=== PATIENT | female | born 1935 | race Asian ===

== ENCOUNTER 2017-06-29 11:33 | Emergency (ER) | payer MEDICARE, OTHER ==
[2017-06-29 11:48] VITALS: BP 182/79
--- NOTE | 2017-06-29 12:19 | UC ---
Alvarez Chauhan Benjamin, scribed for Sadi Salcedo MD on 06/29/17 at 1205 . Complaint Female HPI - HPI Summary HPI Summary: 82yo female states that there are bubbles in urine. When questioned clearly she states she notices when she urinates in the toilet the bubbles are on top of the toilet water after urinating. Pt also reports increased urinary frequency. Denies any burning sensation or pain anywhere. No fever. Pt states feeling weak and tired lately. Prior hx of UTI, PMHx includes macular degeneration. FHX of CVA. - History Of Current Complaint Chief Complaint: UCGU Stated Complaint: URINARY ISSUE Time Seen by Provider: 06/29/17 11:53 Hx Obtained From: Patient Onset/Duration: Gradual Onset, Lasting Days, Still Present Timing: Intermittent Severity Currently: None Pain Intensity: 0 Pain Scale Used: 0-10 Numeric Character: Not Applicable Aggravating Factor(s): Nothing Alleviating Factor(s): Nothing Associated Signs And Symptoms: Positive: Negative - Allergies/Home Medications Allergies/Adverse Reactions: Allergies Allergy/AdvReac Type Severity Reaction Status Date / Time Ginkgo Biloba Allergy dermatitis Verified 05/25/17 13:27 Sulfa Antibiotics Allergy Rash Verified 06/29/17 11:37 PMH/Surg Hx/FS Hx/Imm Hx - Additional Past Medical History Additional PMH: Macular degeneration. - Surgical History Surgical History: Yes Surgery Procedure, Year, and Place: hysterectomy - Family History Known Family History: Positive: Other - CVA Family History: CVA - Social History Occupation: Retired Lives: Alone Alcohol Use: None Substance Use Type: None Smoking Status (MU): Never Smoked Tobacco Review of Systems Constitutional: Negative Skin: Negative Eyes: Negative ENT: Negative Respiratory: Negative Cardiovascular: Negative Gastrointestinal: Negative Genitourinary: Frequency - incereased, Other - "bubble in urine" Motor: Negative Neurovascular: Negative Musculoskeletal: Negative Neurological: Negative Psychological: Negative All Other Systems Reviewed And Are Negative: Yes Physical Exam Triage Information Reviewed: Yes Vital Signs: Initial Vital Signs Temp 98.6 F 06/29/17 11:40 Pulse 86 06/29/17 11:40 Resp 16 06/29/17 11:40 BP 182/79 06/29/17 11:40 Pulse Ox 99 06/29/17 11:40 Vital Signs Reviewed: Yes ENT: Positive: Normal ENT inspection Neck: Positive: Supple Respiratory: Positive: Lungs clear, Normal breath sounds Cardiovascular: Positive: RRR, No Murmur Abdomen Description: Positive: Nontender. Negative: CVA Tenderness (R), CVA Tenderness (L), Distended Musculoskeletal: Positive: ROM Intact, No Edema Neurological: Positive: Alert, Muscle Tone Normal, Other: - CN 2-12 grossly intact, strength 5/5 throughout, sensory grossly intact, speech clear and speaks telugu very well with full understanding and conversation. Gait stable.. Negative: Fatigued Psychological: Positive: Normal Response To Family Skin: Negative: rashes Complaint Female Dx - Course Course Of Treatment: Reviewed pts medication and allergy lists. High Blood pressure noted. Female with negative UA. No blood or glucose in urine. FU with PMD - Differential Dx/Diagnosis Provider Diagnoses: urinary frequency. fatigue. hypertension Discharge - Discharge Plan Condition: Good Disposition: HOME Patient Education Materials: Fatigue (ED), Hypertension (ED) Referrals: No Primary Care Phys,NOPCP [Primary Care Provider] - [facility] [place] [facility] [Outside] - 2 Days The documentation as recorded by the Alvarez lim Benjamin accurately reflects the service I personally performed and the decisions made by me, Sadi Salcedo MD.
== END 2017-06-29 12:40 | disposition home or self-care (01) ==
LOC: UCEAST 11:33
DX: R35.0 Frequency of micturition (principal); R53.83 Other fatigue; I10 Essential (primary) hypertension
CPT/HCPCS: 81003; 99212; G0463

== ENCOUNTER 2018-01-12 16:17 | Emergency (ER) | payer MEDICARE, OTHER ==
[2018-01-12 17:11] VITALS: BP 137/84
[2018-01-12] MEDS ORDERED: DOXYcycline CAP(*) 100 MG PO ONE (18:29)
--- NOTE | 2018-01-12 18:29 | UC ---
Skin Complaint HPI - HPI Summary HPI Summary: 82 y/o female presents to the urgent care c/o tick bite on the medial side of her left upper thigh since yesterday. Pt removed tick, but some tick remnants still present. Area is red and swollen. Mild pain at touch, 2/10. Pt was doing some gardening the day before. Tick was engorged. Pt denies fever, ACEVEDO, SOB , chest pain,abdominal pain, N/v/D, - History of Current Complaint Hx Obtained From: Patient Onset/Duration: Gradual Onset, Lasting Days - 1 day, Still Present - some remants, Worse Since - this morning Skin Exposure Onset/Duration: Days Ago - 1 day Timing: Constant Onset Severity: Moderate Current Severity: Moderate Pain Intensity: 2 - tick bite Pain Scale Used: 0-10 Numeric Location: Discrete - left upper thigh Character: Redness Aggravating Factor(s): Touch Alleviating Factor(s): Nothing Associated Signs & Symptoms: Positive: Rash. Negative: Nausea, Vomiting, Numbness, Fever, Chills, Drainage, Red Streaks Related History: Possible Reaction to: Insect <Maria Antonia Odom - Last Filed: 01/12/18 21:47> <Stacia Hargrove - Last Filed: 01/13/18 07:04> - History of Current Complaint Chief Complaint: UCSkin Time Seen by Provider: 01/12/18 18:08 Stated Complaint: TICK BITE - Allergy/Home Medications Allergies/Adverse Reactions: Allergies Allergy/AdvReac Type Severity Reaction Status Date / Time ginkgo biloba Allergy See Comment Verified 01/12/18 17:12 Sulfa (Sulfonamide Allergy Rash Verified 01/12/18 17:12 Antibiotics) Home Medications: Home Medications Beta-Carotene(A)-Vits C,E/Mins [Vision Vitamins] 1 each PO 01/12/18 [History] Review of Systems Constitutional: Negative Skin: Rash - tick bite on left upper thigh Eyes: Negative ENT: Negative Respiratory: Negative Cardiovascular: Negative Gastrointestinal: Negative Genitourinary: Negative Motor: Negative Neurovascular: Negative Musculoskeletal: Negative Neurological: Negative Psychological: Negative Is Patient Immunocompromised?: No All Other Systems Reviewed And Are Negative: Yes <Maria Antonia Odom - Last Filed: 01/12/18 21:47> PMH/Surg Hx/FS Hx/Imm Hx Previously Healthy: Yes - Pt denies PMHX - Surgical History Surgical History: Yes Surgery Procedure, Year, and Place: hysterectomy - Family History Family History: CVA - Social History Occupation: Retired Lives: With Family Alcohol Use: None Substance Use Type: None Smoking Status (MU): Never Smoked Tobacco <Maria Antonia Odom - Last Filed: 01/12/18 21:47> Physical Exam - Summary Physical Exam Summary: Vital Signs Reviewed: Yes General: well developed, well nourished female sitting in the examining table w/ o any apparent distress. Eyes: Positive: Conjunctiva Clear - PERRLA, EOMI ENT: Positive: Normal ENT inspection, Hearing grossly normal, Pharynx normal, TMs normal Neck: Positive: Supple, Nontender, No Lymphadenopathy Respiratory: Positive: Chest nontender, Lungs clear, Normal breath sounds Cardiovascular: Positive: RRR, No Murmur, Pulses Normal Abdomen Description: Positive: Nontender, No Organomegaly, Soft. Negative: CVA Tenderness (R), CVA Tenderness (L) Bowel Sounds: Positive: Present Musculoskeletal: Positive: Strength Intact, ROM Intact, No Edema Neurological Exam: Normal Psychological Exam: Normal Skin: Positive: rashes - medial aspect of the left upper thigh with tick bite with surrounding erythema, non tender to palpation. tick remnants still present tick, mild swelling, no drainage observed. Triage Information Reviewed: Yes Vital Signs: Initial Vital Signs Temp 99.2 F 01/12/18 17:03 Pulse 83 01/12/18 17:03 Resp 18 01/12/18 17:03 BP 137/84 01/12/18 17:03 Pulse Ox 96 01/12/18 17:03 <Maria Antonia Odom - Last Filed: 01/12/18 21:47> Vital Signs: Initial Vital Signs Temp 99.2 F 01/12/18 17:03 Pulse 83 01/12/18 17:03 Resp 18 01/12/18 17:03 BP 137/84 01/12/18 17:03 Pulse Ox 96 01/12/18 17:03 <Stacia Hargrove - Last Filed: 01/13/18 07:04> Course/Dx - Course Course Of Treatment: 82 y/o female presents to the urgent care c/o tick bite on the medial side of her left upper thigh since yesterday. Pt removed tick, but some tick remnants still present. Area is red and swollen. Mild pain at touch, 2/10. Pt was doing some gardening the day before. Tick was engorged. Pt denies fever, ACEVEDO, SOB, chest pain,abdominal pain, N/v/D, Hx obtained. Tick remnants. Pt tolerated well procedure. The skin cleansing and Bacitracin oint applied. Antibiotic prophylaxis with Doxycycline given to the patient to prevent lyme Disease.. Pt tolerated well medication. Pt advised to observe the area for the development or Erythema Migrans for upto 30 days following exposure. Advised if he develops fever or erythema Migrans to return to the clinic or PCP for further treatment .Pt understood and agreed with plan of care. - Differential Diagnoses - Skin Complaint Differential Diagnoses: Abscess, Cellulitis, Local Allergic Reaction, MRSA, Systemic Illness, Other - insect bite, bee sting - Diagnoses Provider Diagnoses: 1- left medial thigh tick bite <Maria Antonia Odom - Last Filed: 01/12/18 21:47> Discharge - Sign-Out/Discharge Documenting (check all that apply): Discharge/Admit/Transfer - D/c home - Billing Disposition and Condition Condition: STABLE Disposition: Home <Maria Antnoia Odom - Last Filed: 01/12/18 21:47> - Billing Disposition and Condition Condition: STABLE Disposition: Home <Stacia Hargrove - Last Filed: 01/13/18 07:04> - Discharge Plan Condition: Stable Disposition: HOME Prescriptions: Bacitracin OINTMENT* 1 applic TOPICAL BID #1 tube Patient Education Materials: Tick Bite (ED) Referrals: [facility] [place] [facility] [Outside] Fermín ABBASI,Yared Ni [Medical Doctor] - If Needed No Primary Care Phys,NOPCP [Primary Care Provider] - Additional Instructions: 1- Please observe the area for the development or Erythema Migrans for upto 30 days following exposure. Components of the tick saliva can cause transient erythema that should not be confused with Erythema Migrans. If you develop the bull's eye rash, fever, joint pains please return to the urgent care or f/u with your PCP or Dr Kovacs for further management. 2-Antibiotic prophylaxis with Doxycycline was given to you today to prevent lyme Disease. Lyme serology can be drawn in 2 weeks with your PCP to r/o Lyme disease since there is probability of negative results at early exposure. 3- Apply Bacitracin oint on the affected area as directed. Attestation Statement User Type: Provider - I was available for consult. This patient was seen by the HUSSEIN. The patient was not presented to, seen by, or examined by me. -Caesar <Stacia Hargrove - Last Filed: 01/13/18 07:04>
== END 2018-01-12 18:49 | disposition home or self-care (01) ==
LOC: UCEAST 16:17
DX: S70.362A Insect bite (nonvenomous), left thigh, initial encounter (principal); Z88.2 Allergy status to sulfonamides; W57.XXXA Bitten or stung by nonvenomous insect and other nonvenomous arthropods, initial encounter; Y92.9 Unspecified place or not applicable
CPT/HCPCS: 99212; A9270-GY; G0463

== ENCOUNTER 2021-09-19 21:43 | Inpatient (IN) ==
[2021-09-20 00:35] LABS: ABS Lymphocytes 0.5 10^3/ul (1.0-4.8); ABS Monocytes 1.2 10^3/ul (0-0.8); ABS Neutrophils 12.3 10^3/ul (1.5-7.7); Hematocrit 33 % (35-47); Hemoglobin 10.7 g/dL (12.0-16.0); Lymphocyte % 3.7 %; Mean Corpuscular HGB Conc 33 g/dL (31-36); Mean Corpuscular Hemoglobin 29 pg (27-31); Mean Corpuscular Volume 90 fL (80-97); Mean Platelet Volume 9.8 fL (7.4-10.4); Platelet Count 167 10^3/uL (150-450); Red Blood Count 3.64 10^6 /uL (3.70-4.87); Red Cell Distribution Width 14 % (10-15)
[2021-09-20 00:43] LABS: Activated Partial Thrombo Time 27.4 seconds (26.0-38.0); INR 1.07 (0.86-1.15)
[2021-09-20 00:53] LABS: ALT 15 U/L (7-52); AST 31 U/L (13-39); Albumin 3.3 g/dL (3.2-5.2); Albumin/Globulin Ratio 1.3 (1-3); Alkaline Phosphatase 67 U/L (35-149); Anion Gap 8 mmol/L (2-11); Blood Urea Nitrogen 43 mg/dL (6-24); C Reactive Protein 134.93 mg/L (<8.01); CO2 Carbon Dioxide 25 mmol/L (22-32); Calcium 8.4 mg/dL (8.6-10.3); Chloride 98 mmol/L (101-111); Creatine Kinase 917 U/L (10-223); Globulin 2.5 g/dL (2-4); Glucose 151 mg/dL (70-100); Potassium 3.8 mmol/L (3.5-5.0); Sodium 131 mmol/L (135-145); Total Protein 5.8 g/dL (6.4-8.9); eGFR CKD-EPI 39.1 (>60)
[2021-09-20] MEDS ORDERED: Lactated Ringers 1000 ml BAG 1,000 ML IV ONE ×2 (01:02→03:46)
[2021-09-20 01:06] LABS: Troponin I 0.03 ng/mL (<0.03)
[2021-09-20 02:21] LABS: Urine Appearance Cloudy; Urine Bilirubin Negative (Negative); Urine Blood Negative (Negative); Urine Color Yellow; Urine Glucose Negative (Negative); Urine Ketones Negative (Negative); Urine Nitrite Negative (Negative); Urine Protein 2+(100 mg/dL) (Negative); Urine Specific Gravity 1.011 (1.002-1.030); Urine Urobilinogen Negative (Negative)
[2021-09-20 02:25] LABS: Urine Bacteria Absent (Absent); Urine Red Blood Cell Absent (Absent); Urine Squamous Epithelial Cell Present (Absent); Urine White Blood Cell 3+(>20/hpf) (Absent)
[2021-09-20] MEDS ORDERED: cefTRIAXone 1 gm/50 mL NS BAG 1 GM/50 ML BAG IV ONE (02:39)
[2021-09-20 03:44] LABS: Urine Creatinine Concentration 71.92 mg/dL; Urine Sodium Concentration < 18 mmol/L
[2021-09-20] MEDS ORDERED: Ondansetron 4 mg VIAL 2 MG/ML 2 ml VIAL IV PRN (03:58)
[2021-09-20 06:56] LABS: ABS Lymphocytes 0.4 10^3/ul (1.0-4.8); ABS Monocytes 1.1 10^3/ul (0-0.8); ABS Neutrophils 12.5 10^3/ul (1.5-7.7); Eosinophil % 0.1 %; Hematocrit 31 % (35-47); Hemoglobin 10.4 g/dL (12.0-16.0); Lymphocyte % 2.5 %; Mean Corpuscular HGB Conc 34 g/dL (31-36); Mean Corpuscular Hemoglobin 31 pg (27-31); Mean Corpuscular Volume 91 fL (80-97); Mean Platelet Volume 9.7 fL (7.4-10.4); Platelet Count 155 10^3/uL (150-450); Red Blood Count 3.39 10^6 /uL (3.70-4.87); Red Cell Distribution Width 14 % (10-15)
[2021-09-20 07:03] LABS: Potassium 3.8 mmol/L (3.5-5.0); eGFR CKD-EPI 44.7 (>60)
[2021-09-20] MEDS: Cholecalciferol (VIT D3) 1,000 unit TAB PO SCH (09:40)
[2021-09-20] MEDS ORDERED: Iodixanol (CONTRAST) 320 MG/ML 100 ML SDV IV ONE (12:49)
[2021-09-20] MEDS: Enoxaparin 30 MG/0.3 ML SYR SUBCUT SCH (18:32)
[2021-09-21] MEDS: cefTRIAXone 1 gm/50 mL NS BAG 1 GM/50 ML BAG IVPB SCH (04:36)
[2021-09-21 06:34] LABS: ABS Lymphocytes 0.5 10^3/ul (1.0-4.8); ABS Monocytes 1.4 10^3/ul (0-0.8); ABS Neutrophils 15.6 10^3/ul (1.5-7.7); Hematocrit 26 % (35-47); Lymphocyte % 2.8 %; Mean Corpuscular HGB Conc 34 g/dL (31-36); Mean Corpuscular Hemoglobin 31 pg (27-31); Mean Corpuscular Volume 90 fL (80-97); Mean Platelet Volume 9.5 fL (7.4-10.4); Platelet Count 131 10^3/uL (150-450); Red Blood Count 2.94 10^6 /uL (3.70-4.87); Red Cell Distribution Width 13 % (10-15); White Blood Count 17.6 10^3/uL (3.5-10.8)
[2021-09-21 06:50] LABS: C Reactive Protein 144.55 mg/L (<8.01); Calcium 7.8 mg/dL (8.6-10.3); Potassium 3.7 mmol/L (3.5-5.0); eGFR CKD-EPI 38.7 (>60)
[2021-09-21] MEDS: Cholecalciferol (VIT D3) 1,000 unit TAB PO SCH (09:07)
[2021-09-21] MEDS ORDERED: NS 0.9% 1000 ml BAG 1,000 ML IV SCH (14:00)
[2021-09-21] MEDS: Enoxaparin 30 MG/0.3 ML SYR SUBCUT SCH (18:04)
[2021-09-22] MEDS: cefTRIAXone 1 gm/50 mL NS BAG 1 GM/50 ML BAG IVPB SCH (05:45)
[2021-09-22 05:57] LABS: ABS Eosinophils 0.1 10^3/ul (0-0.6); ABS Monocytes 1.4 10^3/ul (0-0.8); ABS Neutrophils 17.9 10^3/ul (1.5-7.7); Eosinophil % 0.6 %; Hematocrit 30 % (35-47); Hemoglobin 9.9 g/dL (12.0-16.0); Lymphocyte % 4.8 %; Mean Corpuscular HGB Conc 33 g/dL (31-36); Mean Corpuscular Hemoglobin 30 pg (27-31); Mean Corpuscular Volume 90 fL (80-97); Mean Platelet Volume 9.7 fL (7.4-10.4); Platelet Count 157 10^3/uL (150-450); Red Blood Count 3.34 10^6 /uL (3.70-4.87); Red Cell Distribution Width 14 % (10-15); White Blood Count 20.5 10^3/uL (3.5-10.8)
[2021-09-22 06:22] LABS: Calcium 7.6 mg/dL (8.6-10.3); Potassium 4.2 mmol/L (3.5-5.0); eGFR CKD-EPI 36.1 (>60)
[2021-09-22 08:31] LABS: C Reactive Protein 159.93 mg/L (<8.01)
[2021-09-22] MEDS: Cholecalciferol (VIT D3) 1,000 unit TAB PO SCH (08:35)
[2021-09-22] MEDS: NS 0.9% 1000 ml BAG 1,000 ML IV SCH (15:26)
[2021-09-22] MEDS: Enoxaparin 30 MG/0.3 ML SYR SUBCUT SCH (17:09)
[2021-09-23 04:49] LABS: Hematocrit 27 % (35-47); Hemoglobin 9.2 g/dL (12.0-16.0); Mean Corpuscular HGB Conc 34 g/dL (31-36); Mean Corpuscular Hemoglobin 30 pg (27-31); Mean Corpuscular Volume 89 fL (80-97); Mean Platelet Volume 9.2 fL (7.4-10.4); Platelet Count 144 10^3/uL (150-450); Red Blood Count 3.06 10^6 /uL (3.70-4.87); Red Cell Distribution Width 14 % (10-15); White Blood Count 18.3 10^3/uL (3.5-10.8)
[2021-09-23 05:04] LABS: C Reactive Protein 103.98 mg/L (<8.01); Calcium 7.4 mg/dL (8.6-10.3); eGFR CKD-EPI 45.6 (>60)
[2021-09-23 05:09] LABS: ABS Eosinophils 0.2 10^3/ul (0-0.6); ABS Monocytes 1.7 10^3/ul (0-0.8); ABS Neutrophils 15.4 10^3/ul (1.5-7.7); Lymphocyte % 5.2 %
[2021-09-23] MEDS: NS 0.9% 1000 ml BAG 1,000 ML IV SCH ×2 (05:22→19:08)
[2021-09-23] MEDS: cefTRIAXone 1 gm/50 mL NS BAG 1 GM/50 ML BAG IVPB SCH (05:23)
[2021-09-23] MEDS: Cholecalciferol (VIT D3) 1,000 unit TAB PO SCH (09:34)
[2021-09-23] MEDS: Enoxaparin 30 MG/0.3 ML SYR SUBCUT SCH (16:34)
[2021-09-24] MEDS: cefTRIAXone 1 gm/50 mL NS BAG 1 GM/50 ML BAG IVPB SCH (05:22)
[2021-09-24 06:04] LABS: ABS Eosinophils 0.3 10^3/ul (0-0.6); ABS Lymphocytes 1.5 10^3/ul (1.0-4.8); ABS Monocytes 1.3 10^3/ul (0-0.8); ABS Neutrophils 10.2 10^3/ul (1.5-7.7); Hematocrit 28 % (35-47); Hemoglobin 9.5 g/dL (12.0-16.0); Lymphocyte % 11.4 %; Mean Corpuscular HGB Conc 34 g/dL (31-36); Mean Corpuscular Hemoglobin 30 pg (27-31); Mean Corpuscular Volume 89 fL (80-97); Mean Platelet Volume 8.7 fL (7.4-10.4); Platelet Count 191 10^3/uL (150-450); Red Blood Count 3.18 10^6 /uL (3.70-4.87); Red Cell Distribution Width 14 % (10-15); White Blood Count 13.3 10^3/uL (3.5-10.8)
[2021-09-24 06:10] LABS: Calcium 7.5 mg/dL (8.6-10.3); Potassium 4.3 mmol/L (3.5-5.0); eGFR CKD-EPI 55.2 (>60)
[2021-09-24 08:35] LABS: RBC Morphology Normal (Normal)
[2021-09-24] MEDS: Cholecalciferol (VIT D3) 1,000 unit TAB PO SCH (10:11)
[2021-09-24] MEDS: Enoxaparin 30 MG/0.3 ML SYR SUBCUT SCH (17:43)
[2021-09-25] MEDS: Cholecalciferol (VIT D3) 1,000 unit TAB PO SCH (07:46)
[2021-09-25 09:57] LABS: Hematocrit 31 % (35-47); Hemoglobin 10.1 g/dL (12.0-16.0); Mean Corpuscular HGB Conc 33 g/dL (31-36); Mean Corpuscular Hemoglobin 29 pg (27-31); Mean Corpuscular Volume 89 fL (80-97); Mean Platelet Volume 8.1 fL (7.4-10.4); Platelet Count 243 10^3/uL (150-450); Red Blood Count 3.46 10^6 /uL (3.70-4.87); Red Cell Distribution Width 14 % (10-15); White Blood Count 12.7 10^3/uL (3.5-10.8)
[2021-09-25 10:14] LABS: Calcium 8.2 mg/dL (8.6-10.3); Magnesium 2.1 mg/dL (1.9-2.7); Potassium 3.7 mmol/L (3.5-5.0); eGFR CKD-EPI 52.6 (>60)
[2021-09-25 11:47] LABS: ABS Basophils 0.1 10^3/ul (0-0.2); ABS Eosinophils 0.2 10^3/ul (0-0.6); ABS Lymphocytes 1.2 10^3/ul (1.0-4.8); ABS Monocytes 1.1 10^3/ul (0-0.8); Eosinophil % 1.7 %; Lymphocyte % 9.6 %
[2021-09-25 17:20] LABS: Rapid COVID-19 Molecular Undetected (Undetected)
[2021-09-25] MEDS: Enoxaparin 30 MG/0.3 ML SYR SUBCUT SCH (18:28)
[2021-09-26] MEDS: Cholecalciferol (VIT D3) 1,000 unit TAB PO SCH (09:33)
[2021-09-26] MEDS: Enoxaparin 30 MG/0.3 ML SYR SUBCUT SCH (16:48)
[2021-09-27] MEDS: Cholecalciferol (VIT D3) 1,000 unit TAB PO SCH (08:47)
[2021-09-27] MEDS: Enoxaparin 30 MG/0.3 ML SYR SUBCUT SCH (16:16)
[2021-09-28] MEDS: Cholecalciferol (VIT D3) 1,000 unit TAB PO SCH (09:31)
[2021-09-28] MEDS: Enoxaparin 30 MG/0.3 ML SYR SUBCUT SCH (16:56)
[2021-09-29] MEDS: Cholecalciferol (VIT D3) 1,000 unit TAB PO SCH (08:15)
[2021-09-29 11:31] VITALS: BP 138/56
== END 2021-09-29 13:35 | DRG 872 ==
LOC: ED 21:43 → EDHOLD 21:43 → MED 09-20 05:58 → SUATTDRO 09-20 17:04 → MED 09-24 07:47
PROVIDERS: ADMIT Internal Medicine; ATTEND Internal Medicine